=== PATIENT | male | born 1985 | race Caucasian/White ===

== ENCOUNTER 2017-05-02 11:28 | Outpatient (CLI) | payer OTHER | END 2017-05-02 11:29 | disposition home or self-care (01) | LOC: DI 11:28 | PROVIDERS: ATTEND General Practice | DX: R00.2 Palpitations (principal); R07.89 Other chest pain | CPT/HCPCS: 93306 ==

== ENCOUNTER 2020-11-07 10:26 | Outpatient (CLI) | payer OTHER | END 2020-11-07 23:59 | disposition home or self-care (01) | LOC: LAB.N 10:26 | PROVIDERS: ATTEND Family Medicine | DX: R05 Cough (principal); Z20.822 Contact with and (suspected) exposure to COVID-19 ==

== ENCOUNTER 2021-04-22 18:22 | Emergency (ER) | payer OTHER ==
[2021-04-22] MEDS ORDERED: KETOROLAC 30 MG/ML VIAL IM STA (20:01)
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
== END 2021-04-22 20:30 | disposition home or self-care (01) ==
LOC: ED 18:22
DX: S13.4XXA Sprain of ligaments of cervical spine, initial encounter (principal); M25.511 Pain in right shoulder; V43.52XA Car driver injured in collision with other type car in traffic accident, initial encounter; Y92.410 Unspecified street and highway as the place of occurrence of the external cause; I10 Essential (primary) hypertension
CPT/HCPCS: 96372; 99282; 99283